=== PATIENT | female | born 1980 | race Caucasian/White ===

== ENCOUNTER → 2022-01-07 18:00 | Outpatient (BNVA) | payer OTHER, SELFPAY | PROVIDERS: Visit Provider Family Medicine | DX: R53.83 Other fatigue (principal); R63.4 Abnormal weight loss | CPT/HCPCS: 80053; 82306; 82607; 83540; 84443; 85025 ==

== ENCOUNTER → 2023-03-08 12:00 | Outpatient (BNVA) | payer OTHER, SELFPAY | PROVIDERS: PCP Family Medicine; Visit Provider Family Medicine | DX: R10.30 Lower abdominal pain, unspecified (principal); Z72.51 High risk heterosexual behavior | CPT/HCPCS: 80074; 81000; 86592; 87491; 87591; 87806 ==

== ENCOUNTER → 2023-03-30 09:44 | Outpatient (BNVA) | payer OTHER, SELFPAY | PROVIDERS: PCP Family Medicine; Visit Provider Internal Medicine | DX: G47.30 Sleep apnea, unspecified (principal); R79.89 Other specified abnormal findings of blood chemistry; E06.3 Autoimmune thyroiditis; E11.9 Type 2 diabetes mellitus without complications; R53.83 Other fatigue; B37.9 Candidiasis, unspecified | CPT/HCPCS: 36415; 80053; 80061; 82044; 83036; 83516; 84305; 85025 ==

== ENCOUNTER 2023-04-02 07:53 | Oncology outpatient (recurring) (ONCR) | payer OTHER, SELFPAY ==
[2023-04-02 08:15] VITALS: BP 114/75; PULSE 83; TEMP 37.2; O2SAT 97
[2023-04-02] MEDS: cosyntropin 0.25 mg SDV IVP (08:21)
[2023-04-02 08:51] LABS: Cosyntropin Baseline 19.74 mcg/dL
[2023-04-02 09:48] LABS: Cosyntropin 30 Minute 26.85 mcg/dL
[2023-04-02 10:22] LABS: Cosyntropin 1 Hour 29.39 mcg/dL
== END 2023-04-29 23:59 | disposition home or self-care (01) ==
PROVIDERS: PCP Family Medicine; Visit Provider Internal Medicine
DX: E06.3 Autoimmune thyroiditis (principal); G47.30 Sleep apnea, unspecified; R79.89 Other specified abnormal findings of blood chemistry; E11.9 Type 2 diabetes mellitus without complications; Z53.9 Procedure and treatment not carried out, unspecified reason
CPT/HCPCS: 82533; J0834

== ENCOUNTER 2023-04-26 12:00 | Outpatient (CLI) | payer OTHER, SELFPAY | END 2023-04-26 12:01 | disposition home or self-care (01) | LOC: SLEEP 04-27 10:25 | PROVIDERS: PCP Family Medicine | DX: G47.33 Obstructive sleep apnea (adult) (pediatric) (principal); R09.02 Hypoxemia | CPT/HCPCS: G0399 ==

== ENCOUNTER → 2023-04-29 08:53 | Outpatient (BNVA) | payer OTHER, SELFPAY | PROVIDERS: PCP Family Medicine; Visit Provider Internal Medicine | DX: E06.3 Autoimmune thyroiditis (principal); R53.83 Other fatigue | CPT/HCPCS: 36415; 84439; 84443 ==

== ENCOUNTER → 2023-05-27 08:55 | Outpatient (BNVA) | payer OTHER, SELFPAY | PROVIDERS: PCP Family Medicine; Visit Provider Internal Medicine | DX: E06.3 Autoimmune thyroiditis (principal) | CPT/HCPCS: 84439; 84443; 84481 ==

== ENCOUNTER → 2023-08-11 12:05 | Outpatient (BNVA) | payer OTHER, SELFPAY | PROVIDERS: PCP Family Medicine; Visit Provider Psychiatry & Neurology Neurology | DX: R26.89 Other abnormalities of gait and mobility (principal); R53.1 Weakness; E06.3 Autoimmune thyroiditis; R79.89 Other specified abnormal findings of blood chemistry; E55.9 Vitamin D deficiency, unspecified; B37.9 Candidiasis, unspecified; R41.89 Other symptoms and signs involving cognitive functions and awareness; R29.90 Unspecified symptoms and signs involving the nervous system; R53.83 Other fatigue; R51.9 Headache, unspecified; R42 Dizziness and giddiness; Z79.899 Other long term (current) drug therapy | CPT/HCPCS: 36415; 82306; 82607; 82746; 83090; 83735; 83921; 86592; 86617 ==

== ENCOUNTER 2023-08-30 12:45 | Oncology outpatient (recurring) (ONCR) | payer OTHER, SELFPAY ==
--- NOTE | 2023-08-23 13:15 | USCV_ITS ---
Vivian Tariq Age: 43 Gender: F : 1980 Exam Date: 08/23/2023 13:28 Ordering Phys: Caleb Lyn MD Technologist: [place] [facility] [place]: [place] Risk Factors: Previous Vascular Surgery: Right Brachial BP: / Left Brachial BP: / Right Left Velocity (cm/s) Spectral Plaque Velocity (cm/s) Spectral Plaque Syst/Diast Broadening Syst/Diast Broadening 106.20/30.50 Prox CCA 89.90 / 22.80 77.10/ 24.20 Mid CCA 67.10 / 20.00 74.30/ 25.30 Distal CCA / 65.10/ 14.50 Prox ICA 75.10 / 15.70 122.00/50.40 Mid ICA 109.60/ 42.50 132.20/62.60 Distal ICA 135.80/ 53.70 86.00 ECA 111.50 1.80 ICA/CCA 1.50 Antegrade Vertebral Antegrade 28.80/ 4.50 cm/s 45.50/ 16.80 cm/s Tri Subclavian Tri 148.1 0 FINDINGS significant stenosis distal ica's bilat CONCLUSIONS Increased PSV in both Distal ICA's. Recommend CTA head and neck Right ICA stenosis <50%. Left ICA stenosis <50%. Normal antegrade Doppler flow noted in the right vertebral artery. Normal antegrade Doppler flow noted in the left vertebral artery. Kevin Washington MD (Electronically Signed) Final Date: 24 August 2023 11:00 S
--- NOTE | 2023-08-30 12:45 | USCV_ITS ---
Vivian LOPEZ Age: 43 Gender: F : 1980 Exam Date: 08/30/2023 12:49 Ordering Phys: Caleb Lyn MD Technologist: Exam Location: [facility] – [place] Indication: cca stenosis BP: 120 / 70 HR: 85 Rhythm: Sinus Technical Quality: Adequate MEASUREMENTS (Male / Female) Normal Values 2D ECHO LV Diastolic Diameter PLAX 4.0 cm 4.2 - 5.9 / 3.9 - 5.3 cm IVS Diastolic Thickness 0.9 cm 0.6 - 1.0 / 0.6 - 0.9 cm IVS Systolic Thickness 1.5 cm LVPW Diastolic Thickness 1.0 cm 0.6 - 1.0 / 0.6 - 0.9 cm LVPW Systolic Thickness 1.2 cm LVOT Diameter 1.8 cm LV Ejection Fraction 2D Teich 70.3 % LV Ejection Fraction MOD 2C 80.1 % LV Ejection Fraction 2C AL 80.8 % LA Diameter 3.3 cm RA Systolic Volume 4C AL 29.8 ml RA Systolic Volume 4C MOD 28.0 ml Aorta at Sinotubular Diameter 2.3 cm IVC Diameter 1.9 cm M-MODE LA Ao Ratio MM 1.4 AV Cusp Separation MM 2.3 cm DOPPLER AV Peak Velocity 146.0 cm/s LVOT Peak Velocity 121.0 cm/s AV Area Cont Eq vti 2.1 cm squared AV Area Cont Eq pk 2.0 cm squared MV Peak Velocity 101.0 cm/s MV Area PHT 4.8 cm squared Mitral E to A Ratio 1.3 TV Peak Velocity 183.0 cm/s TR Peak Velocity 204.0 cm/s TR Peak Gradient 16.6 mmHg TV Peak E Velocity 104.0 cm/s Right Atrial Pressure 3.0 mmHg Pulmonary Artery Systolic Pressu 19.6 mmHg PV Peak Velocity 107.0 cm/s FINDINGS Left Ventricle Normal LV size ejection fraction of 80%. No gross wall motion normalities noted Right Ventricle The right ventricle is normal in size and function. Right Atrium The right atrium is normal in size. Left Atrium The left atrium is normal in size. Mitral Valve Trace mitral valve regurgitation. Aortic Valve No gross abnormalities noted . Tricuspid Valve Trace tricuspid valve regurgitation. Estimated pulmonary artery peak systolic pressure 20 mmHg Pulmonic Valve Structurally normal pulmonic valve without significant stenosis. There is no pulmonic regurgitation. Pericardium Normal pericardium without effusion. Aorta Normal ascending aorta dimension. IVC Normal inferior vena cava. CONCLUSIONS Normal LV size ejection fraction of 80%. No gross wall motion normalities noted. Normal cardiac chamber sizes. No significant valvular abnormalities. Trace tricuspid valve regurgitation. Estimated pulmonary artery peak systolic pressure 20 mmHg. There is no pericardial effusion. There are no intracardiac masses. No similar previous studies are available for comparison Dr Nora Pryor MD FAC (Electronically Signed) Final Date: 01 September 2023 11:17 S
--- NOTE | 2023-09-09 13:00 | MR_ITS ---
WS: [id number] MRI HEAD WITH CONTRAST TECHNIQUE: Sagittal T1, T2 axial, T2 axial FLAIR, axial susceptibility weighted imaging, axial diffus ion weighted images, and coronal T2 images were obtained. Pre and post-T1 axial and post T1 coronal i mages. ADC and FSPGR images. CLINICAL INFORMATION: R26.89 - Other abnormalities of gait and mobility COMPARISON: None. FINDINGS: No evidence of restricted diffusion to suggest acute ischemia. Ventricular system and basilar cistern s are patent. A few tiny foci of T2 hyperintensity in the supratentorial white matter are nonspecific in a patient this age but can be seen with hypertension, diabetes, and migraine headaches. No significant parenchymal volume loss. Normal posterior fossa. Normal vascular flow voids at the sku ll base. No extra-axial fluid collections. No evidence of mass or mass effect. Retention cyst LEFT ma xillary sinus measuring 14 mm. Normal posterior nasopharynx. No hemosiderin on the susceptibly weighted images. Normal optic chiasm and pituitary infundibulum. Te mporal lobes and hippocampal formations are normal in appearance. No abnormal gadolinium enhancement. Normal visualized dural venous sinuses. MR/MR head wo/w con [id number] IMPRESSION: 1. No evidence of restricted diffusion to suggest acute ischemia. 2. Mild supratentorial white matter changes nonspecific in a patient this age but can be seen with hypertension, diabetes, and migraine headaches. No signifi cant parenchymal volume loss. 3. 1.4 cm retention cyst LEFT maxillary sinus. 4. No hemosiderin on susceptibility-weighted images. 5. No abnormal gadolinium enhancement.
[2023-09-09] MEDS: gadobenate dimeglumine 20 mL vial IV (13:52)
== END 2023-09-09 23:59 | disposition home or self-care (01) ==
LOC: RAD 09-10 13:48 → ONCMED 09-14 07:24
PROVIDERS: PCP Family Medicine; Visit Provider Psychiatry & Neurology Neurology
DX: R53.1 Weakness; E06.3 Autoimmune thyroiditis; R26.89 Other abnormalities of gait and mobility; R79.89 Other specified abnormal findings of blood chemistry; J34.1 Cyst and mucocele of nose and nasal sinus
CPT/HCPCS: 70553; 93306; 93880; A9577